=== PATIENT | male | born 1950 | race Caucasian/White ===

== ENCOUNTER 2018-04-14 14:12 | Emergency (ER) | payer OTHER ==
[2018-04-14] MEDS ORDERED: TDAP ADULT 0.5 ML INJ (BOOSTRIX) IM ONE (14:39)
--- NOTE | 2018-04-14 14:39 | EDPHY ---
H & P Stated Complaint: mechanical fall, facial lacerations Time Seen by Provider: 04/14/18 14:26 HPI/ROS: HPI: This is a 67-year-old male who presents with Chief Complaint: Mechanical fall, laceration Location: Forehead, nose Quality: Laceration Duration: 1 hr prior to arrival Signs and Symptoms: No LOC, + bleeding, no radiation, no numbness, no weakness , no tingling, no incontinence, no decreased range of motion, no swelling, no pain, no fever Timing: Acute Severity: [id number] Context: Patient presents via EMS, secondary to tripping on uneven cement while walking into his son's apartment. He is helping his son move into [facility]. He is originally from [place]. He reports that his foot got caught on uneven cement any fell forward. He reports that he uses hands to catch his fall but his forehead and nose hit the cement. He reports that he felt immediate, constant, mild pain. Denies LOC, neck pain, dizziness, nausea, vomiting, amnesia. He was ambulatory at the scene. He applied direct pressure to stop the bleeding. Unsure of last tetanus booster. Patient denies any pain in his hand or wrist. Reports full range of motion. Right-hand dominant. Does not take any blood thinners. Modifying Factors: Direct pressure Comment: ROS: A comprehensive 10 system review of systems is otherwise negative aside from elements mentioned in the history of present illness. MEDICAL/SURGICAL/SOCIAL HISTORY: Medical history: Generally healthy. Does not take any regular medications. Surgical history: Cataract surgery Social history: Lives in [place]. Never smoked. with children. CONSTITUTIONAL: Polite and cooperative, elderly white male, awake and alert, no obvious distress HEENT: Forehead laceration with no active bleeding noted, nasal bridge laceration noted, and normocephalic, PERRL, EOMI. no globe entrapment, no raccoon eyes. no Bledsoe signs.Tympanic membranes clear. No tympanic membrane rupture. Nares patent; no septal hematoma. Oropharynx clear, no exudate and moist pink mucosa. No malocclusion. no dental trauma. Airway patent. No lymphadenopathy. NECK: supple, no midline tenderness, flexion 45 degrees, extension 45 degrees, right and left lateral flexion 45 degrees. No meningismus. Cardiovascular: Normal S1/S2, regular rate, regular rhythm, without murmur rub or gallop. PULMONARY/CHEST: Symmetrical and nontender. no crepitus. Clear to auscultation bilaterally. Good air movement. No accessory muscle usage. ABDOMEN: Soft, nondistended, nontender, no ecchymosis, no rebound, no guarding , no peritoneal signs, no masses or organomegaly. No CVAT. EXTREMITIES: 2/2 radial pulses, bilateral WRIST: Extension to 70, flexion to 80, radial deviation to 20 degree, ulnar deviation to 30, no scaphoid tenderness, no tenderness over ulnar styloid, no tenderness over radial styloid , no deformities, no clubbing, no cyanosis or edema. NEUROLOGICAL: no focal neuro deficits. GCS 15. SKIN: Warm and dry, no erythema. no rash. Good capillary refill. Source: Patient Exam Limitations: No limitations - Personal History Current Tetanus/Diphtheria Vaccine: No Current Tetanus Diphtheria and Acellular Pertussis (TDAP): No - Medical/Surgical History Hx Asthma: No Hx Chronic Respiratory Disease: No Hx Diabetes: No Hx Cardiac Disease: No Hx Renal Disease: No Hx Cirrhosis: No Hx Alcoholism: No Hx HIV/AIDS: No Hx Splenectomy or Spleen Trauma: No Other PMH: cataract surgery - Social History Smoking Status: Never smoked Constitutional: Initial Vital Signs Temperature (C) 36.5 C 04/14/18 14:21 Heart Rate 87 04/14/18 14:21 Respiratory Rate 18 04/14/18 14:21 Blood Pressure 197/106 H 04/14/18 14:21 O2 Sat (%) 95 04/14/18 14:21 O2 Delivery Mode Room Air Allergies/Adverse Reactions: Penicillins Allergy (Verified 04/14/18 14:23) Medical Decision Making Procedures: Procedure: Laceration repair. Verbal consent was obtained from the patient. The 1.6 cm, linear, superficial laceration on the bridge of the nose was anesthetized in the usual fashion using 2 mL of 1% lidocaine without epinephrine. The wound was irrigated, draped and explored to its base with a gloved finger. There were no deep structures involved. No tendon injury was identified. The wound was repaired with #2, 5-0 Prolene in simple interrupted pattern. Good hemostasis was achieved and patient tolerated procedure well. Steri-Strips applied. The procedure was performed by myself. Procedure: Laceration repair. Verbal consent was obtained from the patient. The irregular L shape, 3.5 cm, deep, simple laceration on the forehead was anesthetized in the usual fashion using 4 mL of 1% lidocaine with epinephrine The wound was irrigated, draped and explored to its base with a gloved finger. There were no deep structures involved. No tendon injury was identified. The wound was repaired with #6, 5 0 Prolene in simple interrupted pattern. Good hemostasis was achieved and patient tolerated procedure well. Steri-Strips applied. The procedure was performed by myself. ED Course/Re-evaluation: Vital signs reviewed and show elevated blood pressure upon arrival. Suspect secondary to pain. Patient is older than 65 years old, will obtain head CT imaging Local anesthesia provided; copiously irrigated; laceration repair Written and verbal wound care instructions provided Tetanus booster ordered Fall was mechanical in nature. 1500: Notified by nurse that patient was to talk to me. Patient is extremely worried about cost and politely refuses head CT imaging. He understands the risks and benefits of intracranial hemorrhage and possibly . No signs of neurovascular compromise/tenting of skin/compartment syndrome/ extremities and joints examined above and below area of concern and are neurovascularly intact. This patient was seen under the supervision of my secondary supervising physician. Discussed this patient with Dr. Polanco. Differential Diagnosis: Head injury including but not limited to concussion, skull fracture, intraparenchymal contusion, subarachnoid, subdural and epidural hematoma. - Data Points Medications Given: Discontinued Medications Diphtheria/Tetanus/Acell Pertussis (Boostrix) 0.5 ml IM .ONCE ONE Stop: 04/14/18 14:40 Last Admin: 04/14/18 15:18 Dose: 0.5 ml Departure - Departure Disposition: Home, Routine, Self-Care Clinical Impression: Laceration of forehead without complication Qualifiers: Encounter type: initial encounter Qualified Code(s): S01.81XA - Laceration without foreign body of other part of head, initial encounter Laceration of nose without complication Qualifiers: Encounter type: initial encounter Qualified Code(s): S01.21XA - Laceration without foreign body of nose, initial encounter Head injury, acute, without loss of consciousness Qualifiers: Encounter type: initial encounter Qualified Code(s): S09.90XA - Unspecified injury of head, initial encounter Condition: Good Instructions: Laceration (ED), Care For Your Stitches (ED), Steristrips (ED), Head Injury (ED) Additional Instructions: Keep the laceration/Steri-Strips dry for 48 hours. After 48 hours, you may wash the site daily with mild soap and water; then pat dry. Apply topical antibiotic ointment daily until fully healed. Take Tylenol 650 mg every 4 hours and/or Ibuprofen 600 mg every 8 hours with food as needed for pain/headache. Wound Care Follow-Up: Removal of sutures in [ 5-7 ] days. Suture removal is complimentary in uncomplicated cases. Infection or abnormal findings would require reevaluation by the MD. In that case, you may be billed. Return to the ER immediately if you have progressive headaches, neurologic deficits, gait abnormality, visual disturbance, slurred speech, or any other symptom that concerns you. Referrals: PCP Not In,[facility] [Medical Doctor] - As per Instructions Jacquelin Rogel MD [Medical Doctor] - Follow Up Only If Needed
[2018-04-14 16:09] VITALS: BP 184/110
== END 2018-04-14 16:04 | disposition home or self-care (01) ==
DX: S01.81XA Laceration without foreign body of other part of head, initial encounter (principal); S01.21XA Laceration without foreign body of nose, initial encounter; W01.198A Fall on same level from slipping, tripping and stumbling with subsequent striking against other object, initial encounter; Y93.01 Activity, walking, marching and hiking; Y92.014 Private driveway to single-family (private) house as the place of occurrence of the external cause; Z88.0 Allergy status to penicillin; Z23 Encounter for immunization